=== PATIENT | female | born 1950 | race Caucasian/White ===

== ENCOUNTER → 2016-06-06 | Outpatient (CLI) | payer OTHER ==
--- NOTE | 2016-06-06 15:55 | REP ---
Left lower extremity Duplex Doppler venous ultrasound: Real time compression and duplex Doppler interrogation of the left lower extremity deep venous system is performed. The left common femoral, superficial femoral and popliteal veins are fully compressible with transducer pressure and demonstrate normal spontaneous and phasic flow, without evidence of deep venous thrombosis. Impression: No evidence of deep venous thrombosis of the left lower extremity femoral popliteal venous system. There is a complex popliteal cyst measuring 6.0 x 1.8 x 3.4 cm. Signed by Silvnio Croft MD 06/06/2016 03:46 P
== END ==
LOC: M RAD 15:25
PROVIDERS: ATTEND Physician Assistant
DX: M79.605 Pain in left leg (principal); M71.22 Synovial cyst of popliteal space [Baker], left knee

== ENCOUNTER → 2016-07-06 | Outpatient (REF) | payer OTHER ==
[2016-07-06 14:33] LABS: CRYSTALS, BODY FLUID NONE SEEN (NONE SEEN)
[2016-07-06 14:48] LABS: URIC ACID, BODY FLUID 1.8 MG/DL (NOT ESTABLISHED)
[2016-07-06 15:11] LABS: RBC ADVIA BF 0.06; RBC CALC. BF 60000 (< 10mm3 cells/uL); SYNOVIAL FLUID COLOR PALE YELLOW (YELLOW); WBC ADVIA BF 2.4; WBC CALC. BF 2400 cells/uL (0-20)
[2016-07-06 15:12] LABS: BF DIFF IF INDICATED? YES (NO)
[2016-07-06 20:49] LABS: HCT SOURCE LFT KNEE
[2016-07-06 22:50] LABS: CC BF DIFF EXAM CYTOCENTRIFUGE
== END ==
LOC: M LAB REF 13:59
PROVIDERS: ATTEND Physician Assistant
DX: M25.562 Pain in left knee (principal)